=== PATIENT | male | born 1965 | race Caucasian/White ===

== ENCOUNTER 2019-02-03 00:52 | Emergency (ER) | payer SELFPAY ==
[2019-02-03 06:14] LABS: APPEARANCE,URINE CLEAR; BILIRUBIN,URINE NEGATIVE (NEGATIVE); COLOR,URINE YELLOW; GLUCOSE, URINE >=500 mg/dL (NEGATIVE); KETONES,URINE TRACE mg/dL (NEGATIVE); LEUKOCYTE ESTERASE,URINE NEGATIVE (NEGATIVE); NITRITE,URINE NEGATIVE (NEGATIVE); PROTEIN,URINE NEGATIVE (NEGATIVE); URINE SPECIFIC GRAVITY 1.025; UROBILINOGEN,URINE NEGATIVE mg/dL (<2.0)
--- NOTE | 2019-02-03 06:43 | RADIOLOGY REPORT (SQ) ---
CLINICAL HISTORY: injury, pain COMPARISON: None. TECHNIQUE: XR CHEST 2 VIEWS 02/03/2019 5:23 AM CDT FINDINGS: Cardiac silhouette is normal in size. Lungs are clear without consolidation, atelectasis, mass or edema. There is no pleural effusion. There is no pneumothorax. There are no acute osseous findings. IMPRESSION: Clear lungs.
--- NOTE | 2019-02-03 06:55 | RADIOLOGY REPORT (SQ) ---
EXAM DESCRIPTION: XR LUMBAR SPINE ANTEROPOSTERIOR, LATERAL, AND OBLIQUES COMPLETED DATE/TME: 02/03/2019 05:23 CLINICAL HISTORY: 54 years, Male, injury, pain COMPARISON: None. FINDINGS: 4 views of the lumbar spine. 5 nonrib-bearing lumbar vertebrae. Pedicles identified throughout. Vertebral body height preserved. No acute cortical step-offs or subluxation. Intervertebral disc height preserved. Mild endplate spondylosis. No acute abnormalities of sacrum or pelvis. No acute abnormalities of visualized abdominal soft tissues. IMPRESSION: 1. No acute abnormality of the lumbar spine by plain film criteria. copyright 2010 [employer]- All Rights Reserved
[2019-02-03] MEDS ORDERED: KETOROLAC TROMETHAMINE 60 MG/2 ML SDV IM ONE (07:14)
--- NOTE | 2019-02-03 07:19 | ER Document Report ---
ED Neck/Back Problem - General Chief Complaint: Back Pain Stated Complaint: BACK PAIN Time Seen by Provider: 02/03/19 06:50 Notes: History of Present Illness Chief Complaint: Back pain 54 years old male presents today with 3-day history of left lower back pain after lifting a heavy object and turning around. Developed suddenly since then having pain over the left sacroiliac joint region, nonradiating not associated with any numbness tingling sensation or weakness over the lower extremity. Pain is exacerbated by change of position. Such as standing up from a seated position or sitting down from a standing position. Twisting the lower back also painful. History obtained from patient Symptoms began: Today Mechanism: Onset: Gradual Timing: Constant Quality: "pain" Intensity: Severe Location: Para lumbar region in the left side of the lower back Radiation: None Migration: None Aggravating factors: Movement Relieving factors: None Denies significant traumatic injury Denies weakness, numbness, incontinence Denies IV drug use Review of Systems: All other systems negative as reviewed. CONSTITUTIONAL No fever, No chills. EYES No eye pain. ENT No URI symptoms, No sore throat, No ear pain. CARDIOVASCULAR No chest pain, No palpitations, No edema. RESPIRATORY No Cough, No SOB, No wheezing. GASTROINTESTINAL No abdominal pain, No diarrhea, No vomiting, No constipation, No melena, No rectal bleeding. GENITOURINARY No UTI symptoms, No bleeding. MUSCULOSKELETAL + back pain. SKIN No Rash. NEUROLOGIC No Headache, No recent seizures, No paralysis, No parathesias. Physical Exam CONSTITUTIONAL Vital signs reviewed, uncomfortable, Alert and oriented X 3. Obese HEAD Atraumatic, Normal cephalic. RESPIRATORY/CHEST Chest is non-tender, Breath sounds normal, No respiratory distress. CARDIOVASCULAR RRR, Heart sounds normal. ABDOMEN Abdomen is non-tender, No masses, Bowel sounds normal, No distension, No peritoneal signs. BACK Normal inspection. no focal bony tenderness, bilateral paraspinal tenderness L2-5, negative straight leg test bilaterally, bilateral 2+ knee deep tendon reflexes. UPPER EXTREMITY Inspection normal, No cyanosis/clubbing/edema, 2+ radial pulses. LOWER EXTREMITY Inspection normal, No cyanosis/clubbing/edema, 2+ femoral pulses. NEURO Motor exam normal, Sensory exam normal. SKIN Skin is warm and dry, No rash. PSYCHIATRIC Normal affect. TRAVEL OUTSIDE OF THE [place] IN LAST 30 DAYS: No - HPI Notes: Dictated - Related Data Allergies/Adverse Reactions: Penicillins Allergy (Verified 02/03/19 00:58) Past Medical History - Social History Smoking Status: Never Smoker Chew tobacco use (# tins/day): Yes Frequency of alcohol use: None Drug Abuse: None Family History: Reviewed & Not Pertinent Patient has suicidal ideation: No Patient has homicidal ideation: No - Medical History Notes: Dictated - Past Medical History Cardiac Medical History: Reports: Hx Hypercholesterolemia, Hx Hypertension Pulmonary Medical History: Denies: None, Hx Asthma, Hx Bronchitis, Hx COPD, Hx Pneumonia, Hx Intubation, Hx Respiratory Failure, Hx Sleep Apnea, Hx Tuberculosis, Other Endocrine Medical History: Reports: Hx Diabetes Mellitus Type 2 Renal/ Medical History: Reports: Hx Kidney Stones. Denies: Hx Peritoneal Dialysis Malignancy Medical History: Denies None, Denies Hx Bone Cancer, Denies Hx Brain Cancer, Denies Hx Colorectal Cancer, Denies Hx Leukemia, Denies Hx Liver Cancer, Denies Hx Lung Cancer, Denies Hx Lymphoma, Denies Hx Pancreatic Cancer, Denies Hx Prostate Cancer, Denies Hx Renal (Kidney) Cancer, Denies Hx Skin Cancer, Denies Hx Testicular Cancer, Denies Other GI Medical History: Denies: None, Hx Cirrhosis, Hx Crohn's Disease, Hx Diverticu litis, Hx Gastritis, Hx Gastroesophageal Reflux Disease, Hx Hepatitis, Hx Hiatal Hernia, Hx Irritable Bowel, Hx Liver Failure, Hx Pancreatitis, Hx Ulcer, Hx Ulcerative Colitis, Hx Colonoscopy, Hx Endoscopic Retrograde Cholangio, Hx Endoscopy, Other Musculoskeletal Medical History: Reports Hx Arthritis Psychiatric Medical History: Denies: None, Hx Anxiety, Hx Attention Deficit Hyperactivity Disorder, Hx Bipolar Disorder, Hx Borderline Personality Disorder, Hx Dementia, Hx Depression, Hx Obsessive Compulsive Disorder, Hx Personality Disorder, Hx Post Traumatic Stress Disorder, Hx Schizoaffective Disorder, Hx Schizophrenia, Other Traumatic Medical History: Denies: None, Hx Fractures, Hx Gunshot Wound, Hx Liver Laceration, Hx Pneumothorax, Hx Spine Fracture, Hx Spleen Laceration/Rupture, Hx Traumatic Brain Injury, Other Past Surgical History: Denies: None, Hx Abdominal Surgery, Hx Adenoidectomy, Hx Appendectomy, Hx Bowel Diversion, Hx Bowel Surgery, Hx Cardiac Catheterization, Hx Cardiac Surgery, Hx Carotid Endarterectomy, Hx Cholecystectomy, Hx Colostomy, Hx Coronary Artery Bypass Graft, Hx Coronary Stent, Hx Gastric Bypass Surgery, Hx Genitourinary Surgery, Hx Herniorrhaphy, Hx Ileostomy, Hx Inguinal Hernia, Hx Internal Defibrillator, Hx Kidney (Renal Surgery), Hx Myringotomy, Hx Neurologic Surgery, Hx Nose Surgery, Hx Open Heart Surgery, Hx Oral Surgery, Hx Orthopedic Surgery, Hx Pacemaker, Hx Pancreatic Surgery, Hx Pituitary Surgery, Hx Rectal Surgery, Hx Testicular Surgery, Hx Thyroid Surgery, Hx Tonsillectomy, Hx Umbilical Hernia, Hx Urinary Tract Surgery, Hx Urostomy, Hx Valve Replacement, Hx Vascular Surgery, 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, Hx Whipple, Other Review of Systems - Review of Systems Constitutional: denies: No symptoms reported, See HPI, Chills, Diaphoresis, Fever, Malaise, Weakness, Other, Weight gain, Weight loss, Recent illness EENT: denies: No symptoms reported, See HPI, Eye pain, Eye discharge, Blurred vision, Tearing, Double vision, Ear pain, Ear discharge, Nose pain, Nose congestion, Nose discharge, Sinus pressure, Sinus discharge, Throat pain, Difficulty swallowing, Throat swelling, Mouth pain, Mouth swelling, Dental problem, Vertigo, Other Cardiovascular: denies: No symptoms reported, See HPI, Chest pain, Palpitations, Heart racing, Orthopnea, Dyspnea, Syncope, Dizziness, Lightheaded, Edema, Other, Paroxysmal Nocturnal Dysp Respiratory: denies: No symptoms reported, See HPI, Cough, Hurts to breathe, Hemoptysis, Short of breath, Sputum, Stridor, Wheezing, Other Gastrointestinal: denies: No symptoms reported, See HPI, Abdomen distended, Abdominal pain, Diarrhea, Nausea, Vomiting, Constipation, Blood streaked bowels, Poor appetite, Poor fluid intake, Blood in vomit, Black stools, Rectal bleeding, Last bowel movement, Fecal incontinence, Other Genitourinary: denies: No symptoms reported, See HPI, Burning, Dysuria, Discharge, Frequency, Flank pain, Hematuria, Incontinence, Pain, Urgency, Retention, Other Skin: denies: No symptoms reported, See HPI, Change in color, Change in hair/nails, Dryness, Lesions, Lumps, Rash, Other Neurological/Psychological: denies: No symptoms reported, See HPI, Confusion, Dementia, Depression, Hallucinations, Anxiety, Homicidal ideation, Sensory change, Weakness, Gait changes, Loss of power, Paralysis, Seizure, Lost consciousness, Headaches, Speech impairment, Numbness, Suicidal ideation, Tingling, Tremor, Other Physical Exam - Vital signs Vitals: Temp Pulse Resp BP Pulse Ox 97.7 F 82 18 152/87 H 97 02/03/19 01:00 02/03/19 01:00 02/03/19 01:00 02/03/19 01:00 02/03/19 01:00 - Notes Notes: Dictated Course - Re-evaluation Re-evalutation: 02/03/19 07:18 Given Toradol 60 mg IM. - Vital Signs Vital signs: Temp Pulse Resp BP Pulse Ox 97.7 F 82 18 152/87 H 97 02/03/19 01:00 02/03/19 01:00 02/03/19 01:00 02/03/19 01:00 02/03/19 01:00 - Laboratory Laboratory results interpreted by me: 02/03/19 05:50 Urine Glucose (UA) >=500 H Urine Ketones TRACE H - Diagnostic Test Radiology reviewed: Reports reviewed - X-ray of the chest reported by radiologist as clear- X-ray of the lumbosacral region reported by radiologist as unremarkable. Discharge - Discharge Clinical Impression: Lower back pain Qualifiers: Chronicity: acute Back pain laterality: left Sciatica presence: without sciatica Qualified Code(s): M54.5 - Low back pain Condition: Fair Disposition: HOME, SELF-CARE Instructions: Ice Packs ([facility]), Low Back Pain ([facility]), Muscle Strain ([facility]) Additional Instructions: Please follow-up with your orthopedic surgeon for further evaluation Prescriptions: Baclofen [Baclofen 20 Mg Tablet] 20 mg PO TID #30 tablet Diclofenac Sodium [Diclofenac Sodium ER] 100 mg PO DAILY #30 tab.er.24h Hydrocodone/Acetaminophen [Kuna 5-325 Tablet] 1 each PO TID #12 tablet
[2019-02-03 07:46] VITALS: BP 148/86
== END 2019-02-03 07:46 | disposition home or self-care (01) ==
LOC: ER 00:52
DX: M54.5 Low back pain (principal); E78.00 Pure hypercholesterolemia, unspecified; I10 Essential (primary) hypertension; E11.9 Type 2 diabetes mellitus without complications; Z88.0 Allergy status to penicillin; Z87.442 Personal history of urinary calculi
CPT/HCPCS: 99283; 96374; 81001; 71046; 72110; J1885